=== PATIENT | female | born 1990 | race Asian ===

== ENCOUNTER → 2024-12-12 10:47 | Outpatient (REF) | payer OTHER, SELFPAY | LOC: OHS 10:47 | PROVIDERS: ATTENDING PHYSICIAN Nurse Practitioner Family | DX: Z23 Encounter for immunization (principal) | CPT/HCPCS: 36415; 86706; 86735; 86762; 86765; 86787 ==

== ENCOUNTER → 2025-02-23 10:02 | Outpatient (REF) | payer OTHER, SELFPAY | LOC: REG 10:02 | PROVIDERS: ATTENDING PHYSICIAN Nurse Practitioner Family | DX: Z23 Encounter for immunization (principal) | CPT/HCPCS: 36415; 86706 ==